=== PATIENT | female | born 2000 | race Caucasian/White ===

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

== ENCOUNTER 2020-01-10 12:31 | Observation (INO) ==
[2020-01-10 13:53] LABS: Basophils % 0.2 %; Eosinophils % 0.4 %; Hematocrit 33.6 % (35.3-44.9); Hemoglobin 10.7 g/dL (11.5-15.4); Immature Granulocytes % 0.4 % (0-4); Lymphocytes # 1.1 K/mcL (0.6-4.6); Lymphocytes % 11.2 %; Mean Corpuscular HGB Conc 31.8 g/dL (31.6-35.5); Mean Corpuscular Hemoglobin 29.2 pg (28.0-33.3); Mean Corpuscular Volume 91.6 fL (83.0-100.0); Mean Platelet Volume 12.5 fL (9.4-12.4); Monocytes # 0.6 K/mcL (0.0-1.3); Monocytes % 5.7 %; Neutrophils # 7.9 K/mcL (1.6-8.9); Platelet Count 126 K/mcL (140-400); Red Blood Count 3.67 M/mcL (3.82-4.97); Red Cell Distribution Width 13.2 % (11.5-14.5); Segmented Neutrophils % 82.1 %; White Blood Count 9.6 K/mcL (4.3-11.1)
[2020-01-10 14:00] LABS: Protein/Creatinine Ratio,Urine 0.12 mg/mg (0.00-0.20)
[2020-01-10 14:24] LABS: Alanine Aminotransferase 10 Units/L (7-52); Aspartate Amino Transferase 15 Units/L (13-39); BUN/Creatinine Ratio 16 (6-26); Blood Urea Nitrogen 7 mg/dL (6-20); Lactate Dehydrogenase 205 Units/L (140-271); Uric Acid 4.3 mg/dL (2.3-7.6); eGFR For African Americans > 60; eGFR For Non-African Americans > 60
[2020-01-10] MEDS ORDERED: Betamethasone Acet/SodPhos 30 MG/5 ML VIAL IM SCH (15:00)
== END 2020-01-10 15:25 | disposition home or self-care (01) ==
LOC: 1NENULAB
PROVIDERS: ADMIT Obstetrics & Gynecology; ATTEND Obstetrics & Gynecology

== ENCOUNTER → 2020-02-06 13:04 | Observation (INO) ==
[2020-02-06 11:47] LABS: Basophils % 0.1 %; Eosinophils % 0.3 %; Immature Granulocytes % 0.4 % (0-4)
[2020-02-06 11:49] LABS: Hematocrit 37.2 % (35.3-44.9); Hemoglobin 11.8 g/dL (11.5-15.4); Immature Platelets 16.2 % (1.1-6.1); Lymphocytes # 1.2 K/mcL (0.6-4.6); Lymphocytes % 13.7 %; Mean Corpuscular HGB Conc 31.7 g/dL (31.6-35.5); Mean Corpuscular Hemoglobin 28.6 pg (28.0-33.3); Mean Corpuscular Volume 90.3 fL (83.0-100.0); Mean Platelet Volume 13.1 fL (9.4-12.4); Monocytes # 0.5 K/mcL (0.0-1.3); Platelet Count 135 K/mcL (140-400); Red Blood Count 4.12 M/mcL (3.82-4.97); Segmented Neutrophils % 80.5 %
[2020-02-06 11:50] LABS: Neutrophils # 7.3 K/mcL (1.6-8.9)
[2020-02-06 11:51] LABS: Bilirubin,Urine Negative (Negative); Blood,Urine Negative (Negative); Clarity,Urine Clear (Clear); Color,Urine Light-Yellow (Yellow); Glucose,Urine (UA) Normal (Normal); Ketones,Urine Negative (Negative); Leukocyte Esterase,Urine Negative (Negative); Nitrite,Urine Negative (Negative); Protein,Urine Negative (Neg-Trace); Specific Gravity,Urine 1.016 (1.010-1.025); Urobilinogen,Urine Normal (Normal)
[2020-02-06 11:59] LABS: Protein/Creatinine Ratio,Urine 0.12 mg/mg (0.00-0.20)
[2020-02-06 12:04] LABS: Alanine Aminotransferase 12 Units/L (7-52); Aspartate Amino Transferase 14 Units/L (13-39); BUN/Creatinine Ratio 17 (6-26); Blood Urea Nitrogen 8 mg/dL (6-20); Lactate Dehydrogenase 184 Units/L (140-271); Uric Acid 4.6 mg/dL (2.3-7.6); eGFR For African Americans > 60; eGFR For Non-African Americans > 60
[2020-02-06 13:01] LABS: Adenovirus Not Detected (Not Detect); Bordetella Pertussis Not Detected (Not Detect); Chlamydophila pneumoniae Not Detected (Not Detect); Coronavirus 229E Not Detected (Not Detect); Coronavirus HKU1 Not Detected (Not Detect); Coronavirus NL63 Not Detected (Not Detect); Coronavirus OC43 Not Detected (Not Detect); Human Metapneumovirus Not Detected (Not Detect); Human Rhinovirus/Enterovirus Not Detected (Not Detect); Influenza A Subtype 2009 H1 Not Detected (Not Detect); Influenza B Not Detected (Not Detect); Mycoplasma pneumoniae Not Detected (Not Detect); Parainfluenza Virus 1 Not Detected (Not Detect); Parainfluenza Virus 2 Not Detected (Not Detect); Parainfluenza Virus 3 Not Detected (Not Detect); Parainfluenza Virus 4 Not Detected (Not Detect); Respiratory Syncytial Virus Not Detected (Not Detect); SARS-CoV-2 Not Detected (Not Detect)
[~2020-02-06 13:04] MED LIST changes: -Acetaminophen 325 MG TABLET PO ONE; +Acetaminophen 325 MG TABLET PO SCH; +Prochlorperazine 10 MG/2 ML VIAL IVP PRN
== END | disposition home or self-care (01) ==
LOC: 1NENULAB
PROVIDERS: ADMIT Obstetrics & Gynecology; ATTEND Obstetrics & Gynecology

== ENCOUNTER 2020-02-14 14:16 | Inpatient (IN) ==
[2020-02-14] MEDS ORDERED: Famotidine 20 MG/2 ML VIAL IVP PRN (14:33)
[2020-02-14] MEDS ORDERED: Metoclopramide 10 MG/2 ML VIAL IVP PRN (14:33)
[2020-02-14] MEDS ORDERED: Naloxone 0.4 MG/ML INJ IVP PRN (14:33)
[2020-02-14] MEDS ORDERED: miSOPROStoL 25 MCG TABLET VG PRN (14:33)
[2020-02-14] MEDS ORDERED: Oxytocin 20 units/ LR 1000 mL 20 UNIT/1,000 ML BAG IVC SCH (14:45)
[2020-02-14] MEDS ORDERED: Ringers Solution, Lactated 1,000 ML IVC SCH (14:45)
[2020-02-14 15:48] LABS: Amphetamine Screen,Urine Negative ng/mL (Cutoff=1000); Barbiturate Screen,Urine Negative ng/mL (Cutoff=200); Basophils % 0.2 %; Benzodiazepines Screen,Urine Negative ng/mL (Cutoff=200); Cannabinoid Screen,Urine Negative ng/mL (Cutoff = 50); Cocaine Screen,Urine Negative ng/mL (Cutoff= 300); Creatinine,Urine 132 mg/dL; Eosinophils % 0.3 %; Hematocrit 37.4 % (35.3-44.9); Hemoglobin 11.9 g/dL (11.5-15.4); Immature Granulocytes % 0.7 % (0-4); Immature Platelets 18.2 % (1.1-6.1); Lymphocytes # 1.1 K/mcL (0.6-4.6); Lymphocytes % 11.1 %; Mean Corpuscular HGB Conc 31.8 g/dL (31.6-35.5); Mean Corpuscular Hemoglobin 28.9 pg (28.0-33.3); Mean Corpuscular Volume 90.8 fL (83.0-100.0); Mean Platelet Volume 13.4 fL (9.4-12.4); Monocytes # 0.4 K/mcL (0.0-1.3); Monocytes % 4.3 %; Neutrophils # 8.4 K/mcL (1.6-8.9); Opiate Screen,Urine Negative ng/mL (Cutoff=300); Phencyclidine Screen,Urine Negative ng/mL (Cutoff=25); Platelet Count 138 K/mcL (140-400); Protein/Creatinine Ratio,Urine 0.11 mg/mg (0.00-0.20); Red Blood Count 4.12 M/mcL (3.82-4.97); Red Cell Distribution Width 14.6 % (11.5-14.5); Segmented Neutrophils % 83.4 %
[2020-02-14] MEDS ORDERED: EPHEDrine 50 MG/ML VIAL IVP PRN (17:13)
[2020-02-14] MEDS ORDERED: Epidural Premix (fent/bupiv) 110 ML EP SCH (17:15)
[2020-02-14 18:28] LABS: Alanine Aminotransferase 13 Units/L (7-52); Aspartate Amino Transferase 14 Units/L (13-39); BUN/Creatinine Ratio 22 (6-26); Blood Urea Nitrogen 11 mg/dL (6-20); Lactate Dehydrogenase 181 Units/L (140-271); Uric Acid 4.9 mg/dL (2.3-7.6); eGFR For African Americans > 60; eGFR For Non-African Americans > 60
[2020-02-14] MEDS ORDERED: miSOPROStoL 25 MCG TABLET PO PRN (20:32)
[2020-02-14] MEDS ORDERED: miSOPROStoL 100 MCG TABLET PO SCH (21:00)
[2020-02-14] MEDS ORDERED: ceFAZolin 2,000 MG in 0.9 % Sodium Chloride 100 ML IVPB ONE (22:52)
[2020-02-14] MEDS ORDERED: Azithromycin 500 MG in 0.9 % Sodium Chloride 250 ML IVPB ONE (22:52)
[2020-02-14] MEDS ORDERED: *HR* Oxytocin 10 UNIT/ML VIAL IM ONE (23:02)
[2020-02-14] MEDS ORDERED: Dexamethasone 4 MG/ML VIAL ONE (23:06)
[2020-02-14] MEDS ORDERED: *HR* Succinylcholine 200 MG/10 ML VIAL IVP ONE (23:06)
[2020-02-14] MEDS ORDERED: Ondansetron 4 MG/2 ML VIAL ONE (23:06)
[2020-02-14] MEDS ORDERED: Lidocaine/EPI 1:200k 2% PF 20 ML VIAL ONE ×2 (23:06→23:46)
[2020-02-14] MEDS ORDERED: *HR* FentaNYL (PF) 100 MCG/2 ML VIAL ONE (23:09)
[2020-02-14] MEDS ORDERED: *HR* Morphine Sulfate/PF 10 MG/10 ML AMPUL ONE (23:09)
[2020-02-15] MEDS ORDERED: Ondansetron 4 MG/2 ML VIAL IVP PRN (02:02)
[2020-02-15] MEDS ORDERED: Metoclopramide 10 MG/2 ML VIAL IVP PRN (02:02)
[2020-02-15] MEDS ORDERED: Oxytocin 20 units/ LR 1000 mL 20 UNIT/1,000 ML BAG IVC SCH (02:02)
[2020-02-15] MEDS ORDERED: Sennosides 8.6 MG TABLET PO PRN (02:02)
[2020-02-15] MEDS ORDERED: Rho Immune Globulin 1,500 UNIT SYRINGE IM ONE (02:02)
[2020-02-15] MEDS ORDERED: Simethicone 80 MG TAB.CHEW PO PRN (02:02)
[2020-02-15] MEDS ORDERED: Naloxone 0.4 MG/ML INJ IVP PRN (02:02)
[2020-02-15] MEDS ORDERED: Ringers Solution, Lactated 1,000 ML IVC SCH (02:02)
[2020-02-15] MEDS: Acetaminophen 325 MG TABLET PO SCH ×2 (03:09→19:56)
[2020-02-15] MEDS: Ibuprofen 600 MG TABLET PO SCH ×3 (03:10→16:33)
[2020-02-15] MEDS: metroNIDAZOLE 500 MG TABLET PO SCH ×3 (08:07→19:56)
[2020-02-15] MEDS: cephALEXin 500 MG CAPSULE PO SCH ×3 (08:07→19:56)
[2020-02-15] MEDS: Prenatal Vit/FA 1 EACH TABLET PO SCH (08:08)
[2020-02-15] MEDS: *HR* OxyCODONE Immed Rel 5 MG TABLET PO PRN (20:07)
[2020-02-16] MEDS: Acetaminophen 325 MG TABLET PO SCH ×2 (02:41→08:45)
[2020-02-16] MEDS: Ibuprofen 600 MG TABLET PO SCH ×2 (02:42→08:45)
[2020-02-16 07:54] VITALS: BP 110/62
[2020-02-16] MEDS: cephALEXin 500 MG CAPSULE PO SCH (08:44)
[2020-02-16] MEDS: metroNIDAZOLE 500 MG TABLET PO SCH (08:44)
[2020-02-16] MEDS: Prenatal Vit/FA 1 EACH TABLET PO SCH (08:45)
[2020-02-16] MEDS: *HR* OxyCODONE Immed Rel 5 MG TABLET PO PRN (10:56)
== END 2020-02-16 11:10 | disposition home or self-care (01) | DRG 540 ==
LOC: 1NENULAB → OBSVTOIN 14:16 → 1NENUOBS 02-15 02:01
PROVIDERS: ADMIT Student in an Organized Health Care Education/Training Program; ATTEND Student in an Organized Health Care Education/Training Program